=== PATIENT | female | born 1940 | race Caucasian/White ===

== ENCOUNTER 2016-10-01 19:07 | Observation (INO) | payer OTHER, MEDICARE ==
[~2016-10-01] VITALS: Ht 154.9 cm; Wt 61.2 kg
--- NOTE | 2016-10-01 19:15 | ED CARDIAC/CP/PALPITATIONS ---
History of Present Illness General Chief Complaint: Chest Pain Stated Complaint: CP, SYNCOPE Vital Signs & Intake/Output Vital Signs & Intake/Output Vital Signs Date Time Temp Pulse Resp B/P Pulse O2 O2 Flow FiO2 Ox Delivery Rate 10/01 1913 97.9 100 16 145/76 97 Room Air Allergies Coded Allergies: MDX - Amoxicillin (From AUGMENTIN) (Severe, RASH, HEADACHE, NAUSEA, VOMITING 06/15) MDX - Clavulanic Acid (From AUGMENTIN) (Severe, RASH, HEADACHE, NAUSEA, VOMITING 05/14/12) MDX - Hydrocodone (HYDROCODONE) (Severe, NAUSEA/VOMITING, HEADACHE, CHILLS 05/14) Uncoded Allergies: CILLAN DRUGS (Severe, RASH 05/14/12) VICODEN (Severe, FEVER, CHILLS, HEADACHE, DIZZY, N/V 05/14/12) Triage Note: PT STATES SHE HAS BEEN HAVING EPISODES OF PASSING OUT. PT STATES SHE JUST FINISHED DINNER AND WAS STANDING AT THE COUNTER AND THEN SHE FELL TO THE GROUND. PT STATES -LOC BUT SHE JUST CANT HOLD HERSELF UP. PT WENT TO SEE HER PCP AFTER THIS HAPPEND TO HER ON MONDAY AND SHE HAS F/UP WITH CARDIOLOGY. PT STATES THIS EPISODE LASTED ABOUT 10 MINUTES LAST EPISODE WAS 2 TO 3 MINUTES. Past History Travel History Traveled to [place] past 21 day No Psychosocial History What is your primary language Pashto Tobacco Use: Never used ETOH Use: denies use Illicit Drug Use: denies illicit drug use Progress Plan of Care: Orders Procedure Date/time Status EKG 10/01 1907 Active Departure Departure Condition: Stable Referrals: NELSON VIDAL,ROLF Camacho (PCP/Family) Departure Forms: Customer Survey General Discharge Information
--- NOTE | 2016-10-01 19:38 | NUR ---
SOA BY ER EKG PREFORMED IV MED LOCK EST B/W SENT GIVEN 325 MG ASA PO AT THIS TIME PATIENT DENIES PRESSURE OR PAIN DENIES SOB HR REGULAR NSR RATE 99
[2016-10-01 19:43] LABS: ABSOLUTE BASOPHIL COUNT 0.1 /CUMM (0.0-0.2); ABSOLUTE EOSINOPHIL COUNT 0.1 /CUMM (0.0-0.7); ABSOLUTE GRANULOCYTE CT 4.1 /CUMM (1.4-6.5); ABSOLUTE LYMPH COUNT 2.1 /CUMM (1.2-3.4); ABSOLUTE MONOCYTE COUNT 0.7 /CUMM (0.10-0.60); BASOPHIL % 0.9 % (0.0-2.0); EOSINOPHIL % 2.1 % (0-5); GRANULOCYTE % 58.1 % (42.2-75.2); HEMATOCRIT 38.6 % (37-47); MEAN CORPUSCULAR HGB 29.9 PG (27.0-31.0); MEAN CORPUSCULAR HGB CONC 34.5 G/DL (33.0-37.0); MEAN CORPUSCULAR VOLUME 86.8 FL (81.0-99.0); MEAN PLATELET VOLUME 8.1 FL (7.4-10.4); PLATELET COUNT 226 /CUMM (130-400); RBC DISTRIBUTION WIDTH 13.7 % (11.5-14.5); RED BLOOD CELL CT 4.45 /CUMM (4.20-5.40)
--- NOTE | 2016-10-01 19:54 | NUR ---
CONDITION UNCHANGED NO CP OR PRESSURE NO SOB MONITOR NSR W/ OCC PAC
--- NOTE | 2016-10-01 20:13 | ED GENERAL ADULT ---
See Addendum History of Present Illness General Chief Complaint: Chest Pain Stated Complaint: CP, SYNCOPE Source: patient Exam Limitations: no limitations Vital Signs & Intake/Output Vital Signs & Intake/Output Vital Signs Date Time Temp Pulse Resp B/P Pulse O2 O2 Flow FiO2 Ox Delivery Rate 10/01 2154 97.6 82 18 145/57 97 Room Air 10/01 2144 97 10/01 2052 84 18 132/64 97 Room Air 10/01 2016 93 18 145/70 97 Room Air 10/01 1953 92 18 134/67 97 Room Air 10/01 194 98 20 136/68 98 Room Air 10/01 1913 97.9 100 16 145/76 97 Room Air Allergies Coded Allergies: MDX - Amoxicillin (From AUGMENTIN) (Severe, RASH, HEADACHE, NAUSEA, VOMITING 06/15) MDX - Clavulanic Acid (From AUGMENTIN) (Severe, RASH, HEADACHE, NAUSEA, VOMITING 05/14/12) MDX - Hydrocodone (HYDROCODONE) (Severe, NAUSEA/VOMITING, HEADACHE, CHILLS 05/14) Uncoded Allergies: CILLAN DRUGS (Severe, RASH 05/14/12) VICODEN (Severe, FEVER, CHILLS, HEADACHE, DIZZY, N/V 05/14/12) Triage Note: PT STATES SHE HAS BEEN HAVING EPISODES OF PASSING OUT. PT STATES SHE JUST FINISHED DINNER AND WAS STANDING AT THE COUNTER AND THEN SHE FELL TO THE GROUND. PT STATES -LOC BUT SHE JUST CANT HOLD HERSELF UP. PT WENT TO SEE HER PCP AFTER THIS HAPPEND TO HER ON MONDAY AND SHE HAS F/UP WITH CARDIOLOGY. PT STATES THIS EPISODE LASTED ABOUT 10 MINUTES LAST EPISODE WAS 2 TO 3 MINUTES. Triage Nurses Notes Reviewed? yes Onset: Abrupt Duration: week(s): Timing: recent history HPI: 10/01/16 8 pm 75-year-old female presents to the emergency department for intermittent episodes of chest pressure and profound weakness. The patient states over the past three weeks she has intermittent episodes of chest pressure associated with weakness. She actually gets so weak she needs to lie down. She has not passed out. Today she had an extended period of chest pressure. This concerned her and she came to the emergency department. Currently in the emergency department she is not in pain. The onset of the symptoms were abrupt, the duration of the episode today began at 6:45 PM. Lasted for 10 minutes. She does admit to shortness of breath. (SHERRON OWEN DO) Past History Travel History Traveled to [place] past 21 day No Medical History Any Pertinent Medical History? see below for history Psychiatric: INSOMNIA Surgical History Surgical History: hysterectomy Psychosocial History What is your primary language Bermudian Tobacco Use: Never used ETOH Use: denies use Illicit Drug Use: denies illicit drug use Family History Hx Contributory? Yes (no CAD) (SHERRON OWEN DO) Review of Systems Review of Systems Constitutional: Denies: fever. EENTM: Denies: visual changes. Respiratory: Reports: short of breath. Cardiovascular: Reports: chest pain. GI: Denies: abdominal pain. Genitourinary: Reports: no symptoms. Musculoskeletal: Reports: no symptoms. Skin: Denies: rash. Neurological/Psychological: Reports: weakness. Hematologic/Endocrine: Denies: bruising, bleeding. (SHERRON OWEN DO) Physical Exam Physical Exam General Appearance: well developed/nourished, alert, awake, anxious, moderate distress Head: atraumatic, normal appearance Eyes: Bilateral: normal appearance, PERRL, EOMI. Ears, Nose, Throat: normal pharynx, normal ENT inspection Neck: normal inspection, supple Respiratory: normal breath sounds, chest non-tender, no respiratory distress Cardiovascular: regular rate/rhythm Peripheral Pulses: 4+ radial (R), 4+ radial (L) Gastrointestinal: soft, non-tender Back: normal range of motion Extremities: no edema Neurologic/Psych: no motor/sensory deficits, awake, alert, oriented x 3 Skin: intact, normal color, warm/dry Core Measures ACS in differential dx? Yes CVA/TIA Diagnosis: No Severe Sepsis Present: No Septic Shock Present: No (SHERRON OWEN DO) Progress Differential Diagnoses I considered the following diagnoses in my evaluation of the patient: [ACS, AORTIC DISSECTION, PE, DYSRHYTHMIA] Plan of Care: Orders Procedure Date/time Status Add-on Test (ER Only) 10/01 2138 Active EKG 10/01 2129 Active CTA CHEST-PULMONARY EMBOLISM 10/[address] in observation 10/01 2128 Active Patient Data 10/01 2118 Active Add-on Test (ER Only) 10/01 2012 Active THYROID STIMULATING HORMONE 10/01 1929 Active FREE T4 10/01 1929 Active D-DIMER 10/01 1929 Complete OXYGEN SETUP (GEN) 10/01 1925 Active Telemetry/Industrial Rehabilitation Consultant 10/01 1925 Active TROPONIN LEVEL 10/01 1925 Active COMPREHENSIVE METABOLIC PANEL 10/01 1925 Active CBC WITHOUT DIFFERENTIAL 10/01 1925 Complete EKG 10/01 1907 Active Laboratory Tests 10/01/161929: Anion Gap 15, Estimated GFR > 60, BUN/Creatinine Ratio 24.3, Glucose 113 H, Calcium 9.5, Total Bilirubin 0.5, AST 45 H, ALT 54 H, Alkaline Phosphatase 78, Troponin I < 0.01, Total Protein 6.7, Albumin 4.2, Globulin 2.5, Albumin/ Globulin Ratio 1.7, TSH Pending, Free T4 Pending, D-Dimer 756 H, CBC w Diff NO MAN DIFF REQ, RBC 4.45, MCV 86.8, MCH 29.9, RDW 13.7, MPV 8.1, Gran % 58.1, Lymphocytes % 29.4, Monocytes % 9.5 H, Eosinophils % 2.1, Basophils % 0.9, Absolute Granulocytes 4.1, Absolute Lymphocytes 2.1, Absolute Monocytes 0.7 H, Absolute Eosinophils 0.1, Absolute Basophils 0.1, PUBS MCHC 34.5 Initial ED EKG: NSR, nonspecific ST T wave chg (SHERRON OWEN DO) Diagnostic Imaging: Viewed by Me: CT Scan. Discussed w/RAD: CT Scan. Repeat EKG: unchanged (JUDITH PABLO MD) Departure Departure Disposition: STILL A PATIENT Condition: Stable Clinical Impression Primary Impression: Chest pain Secondary Impressions: Near syncope Referrals: ROLF DAMON MD (PCP/Family) Departure Forms: Customer Survey General Discharge Information Admission Note Spoke With: SHANICE VIDAL,ALANA Documentation of Exam: Documentation of any treatments & extenuating circumstances including Concerns Regarding Discharge (functional status, medication knowledge or non-compliance, living conditions, etc.) that warrant an admission rather than observation: [The patient needs admission for cardiology consultation, inpatient echocardiogram, CTA of the chest] (SHERRON OWEN DO) Departure Time of Disposition: 2128 (JUDITH PABLO MD) Critical Care Note Critical Care Note Critical Care Time: non-applicable (SHERRON OWEN DO)
--- NOTE | 2016-10-01 20:18 | NUR ---
CONDITION UNCHANGED MONITOR NSR NO PAIN OR PRESSURE
--- NOTE | 2016-10-01 20:40 | RADIOLOGY REPORT ---
EXAMINATION: XR PORTABLE CHEST CLINICAL INFORMATION: Shortness of breath. Evaluate for pneumonia. COMPARISON: No relevant prior studies are available for comparison. TECHNIQUE: Portable AP semiupright view of the chest was obtained. FINDINGS: No airspace consolidation. No pneumothorax or pleural effusion. No enlargement of the cardiomediastinal silhouette. Eventration of the right hemidiaphragm. Radiopaque structure overlying the upper abdomen which measures 2 cm and could represent an object external to the patient. A radiopaque gallstone could also be considered. IMPRESSION: No acute cardiopulmonary process.
--- NOTE | 2016-10-01 20:52 | NUR ---
CONDITION STABLE MONITOR NSR DENIES PAIN OR DISCOMFORT
--- NOTE | 2016-10-01 21:09 | NUR ---
RE-EVAL BY BALAJI VIDAL
--- NOTE | 2016-10-01 21:22 | History & Physical ---
TERRENCE VIDAL,[facility] 10/01/162121: General Information and [facility] MD Statement: I have seen and personally examined HAYLIE DUFF and documented this H&P. The patient is a 75 year old F who presented with a patient stated chief complaint of near syncope. Source of Information: patient, family History of Present Illness: Ms. Duff is a 75 y/o F with PMHx of insomnia who presents with multiple episodes of near syncope associated with chest discomfort for the past month. These episodes are preceded by a feeling of weakness and lightheadedness and she finds herself on the floor shortly afterwards. She does not lose consciousness completely during these episodes. Episodes are triggered by positional changes at times and recently they have been increasing in duration, lasting up to 10 minutes. She describes the chest discomfort as a feeling of pressure in her chest as well as on her back between her shoulder blades. Today's episode lasted for about 10 minutes and patient experienced chest pressure, sweating and diaphoresis. Patient also endorses intermittent episodes of tinnitus and right ear fullness for the past few years. Of note, patient has been under significant stress recently due to her son's recent hospitalization for adrenal crisis. She denies any similar episodes previously although she reports that 20 years ago she used to have episodes of dizziness and took a motion sickness medication which helped. She denies history of cardiac problems, HTN, DM, [place] or seizures. Patient was planning to follow up with a investor relations analyst in [place] next week based on the suggestions of her PCP. Past History Travel History Traveled to [place] past 21 day No Medical History Cardiovascular: NONE Psychiatric: insomnia Surgical History Surgical History: hysterectomy Past Family/Social History Family History Relations & Conditions if any FATHER, , Age 50-60; Cause: Lung cancer. FH: lung cancer MOTHER, , Age 60+; Cause: Fall. MATERNAL UNCLE FH: heart disease MATERNAL GRANDMOTHER FH: breast cancer MATERNAL GRANDFATHER FH: heart disease MATERNAL AUNT Rectal cancer PATERNAL GRANDFATHER, , Age 50-60; Cause: Walking pneumonia. PATERNAL GRANDMOTHER, , Age 50-60; Cause: Cirrhosis. FH: cirrhosis PATERNAL AUNT, , Age 50-60; Cause: Cirrhosis. FH: cirrhosis Relation not specified for: FH: colon cancer in relative <50 years old Psychosocial History Where do you live? Home Who Do You Live With? spouse Services at Home: None Primary Language: Luxembourgish Smoking Status: Never Smoked ETOH Use: denies use Illicit Drug Use: denies illicit drug use Functional Ability ADLs Independent: dressing, eating, toileting, bathing. Ambulation: independent IADLs Independent: shopping, housework, finances, food prep, telephone, transportation , medication admin. Employment History Employment Retired Profession/Employer Teacher Review of Systems Review of Systems Constitutional: Reports: diaphoresis, weakness. EENTM: Reports: see HPI. Cardiovascular: Reports: chest pain, palpitations. Respiratory: Reports: short of breath. GI: Denies: abdominal pain, constipation, diarrhea, nausea, vomiting. Genitourinary: Reports: no symptoms. Musculoskeletal: Reports: no symptoms. Skin: Reports: no symptoms. Neurological/Psychological: Reports: no symptoms. Hematologic/Endocrine: Reports: no symptoms. Immunologic/Allergic: Reports: no symptoms. All Other Systems: Reviewed and Negative Exam & Diagnostic Data Last 24 Hrs of Vital Signs/I&O Vital Signs Date Time Temp Pulse Resp B/P Pulse O2 O2 Flow FiO2 Ox Delivery Rate 10/01 2330 97.3 84 16 128/78 98 Room Air 10/01 2154 97.6 82 18 145/57 97 Room Air 10/015 97 10/01 2052 84 18 132/64 97 Room Air 10/01 2017 93 18 145/70 97 Room Air 10/01 195 92 18 134/67 97 Room Air 10/01 1941 98 20 136/68 98 Room Air 10/01 191 97.9 100 16 145/76 97 Room Air Intake & Output 10/02 0800 10/02 0000 10/01 1600 Intake Total 150 Output Total Balance 150 Intake, Oral 150 Patient 61.235 kg Weight Physical Exam General Appearance Alert, Oriented X3, No Acute Distress Skin No Rashes HEENT Atraumatic, PERRLA, EOMI, Mucous Membr. moist/pink, Oropharynx Clear Without Lesions, Mild Right Horizontal Nystagmus, Cerumen in Bilateral Ears Neck Supple, No JVD, +2 Carotid Pulse wo Bruit, No LAD Cardiovascular Regular Rate, Normal S1, Normal S2, No Murmurs, Gallops, Rubs Lungs Clear to Auscultation, Normal Air Movement Abdomen Soft, No Tenderness, Nondistended, Positive Bowel Sounds Neurological Normal Speech, Strength at 5/5 X4 Ext, Sensation Intact, Cranial Nerves 3-12 NL Extremities No Clubbing, No Cyanosis, No Edema Last 24 Hrs of Labs/Bryan: Laboratory Tests 10/01/16 1930: Anion Gap 15, Estimated GFR > 60, BUN/Creatinine Ratio 24.3, Glucose 113 H, Calcium 9.5, Magnesium 1.6, Total Bilirubin 0.5, AST 45 H, ALT 54 H, Alkaline Phosphatase 78, Troponin I < 0.01, Total Protein 6.7, Albumin 4.2, Globulin 2.5, Albumin/Globulin Ratio 1.7, TSH 2.030, Free T4 1.09, D-Dimer 756 H, CBC w Diff NO MAN DIFF REQ, RBC 4.45, MCV 86.8, MCH 29.9, RDW 13.7, MPV 8.1, Gran % 58.1, Lymphocytes % 29.4, Monocytes % 9.5 H, Eosinophils % 2.1, Basophils % 0.9, Absolute Granulocytes 4.1, Absolute Lymphocytes 2.1, Absolute Monocytes 0.7 H, Absolute Eosinophils 0.1, Absolute Basophils 0.1, PUBS MCHC 34.5 Diagnostic Data EKG Results NSR HR 98 QTc 450 CXR Results No acute cardiopulmonary process. Other Results CTA CHEST PE: 1. No central or segmental pulmonary emboli. 2. No airspace consolidation, pneumothorax, or pleural effusion. Left lower lobe postsurgical changes. 3. Multiple hepatic cysts. VTE: Negative. Assessment/Plan Assessment: 75 y/o F with PMHx of insomnia who present with multiple near syncopal episodes associated with chest discomfort x1 month. #Near syncope/chest discomfort: Most likely etiologies are neurocardigenic syncope in the setting of recent stressors and BPPV given right-sided horizontal nystagmus on exam and symptoms of tinnitus and ear fullness. Orthostatic hypotension is unlikely given negative orthostatics. Need to rule out cardiac causes such as ACS and arrhythmia. Initial set of troponins and EKG negative. * Admit to telemetry for continuous cardiac monitoring. * Cardiology consult placed. Appreciate their recs. * Check HbA1c and lipid panel. * Consider outpatient ENT follow given symptoms of tinnitus and ear fullness. * Serial EKG and troponins. * ECHO ordered. #Insomnia: * Continue prior to admission trazodone 100 mg PO QHS and sertraline 100 mg PO QHS. #Transaminitis: Mild elevation in AST (45) and ALT (54) on initial presentation. Likely secondary to hepatic cyst which has been diagnosed previously and present on current CTA. * NTD. Diet: Heart Healthy Pain: Tylenol 650 mg PO Q8H PRN for mild pain (scale 1-3) DVT PPx: Lovenox and ALPs CODE: FULL As Ranked By This Provider Problem List: 1. Near syncope 2. Chest pain 3. Insomnia 4. Transaminitis Core Measures/Miscellaneous Acute Coronary Syndrome ACS Diagnosis: No Cerebrovascular Accident CVA/TIA Diagnosis: No Congestive Heart Failure CHF Diagnosis: No Venous Thromboembolism VTE Risk Factors: Acute medical illness, Age > 40 VTE Prophylaxis Ordered Inpt: Mech & Pharm No Mech VTE prophylaxis d/t: No contraindications No VTE Pharm Prophylaxis d/t: No contraindications VTE Diagnosis: No VTE Type: NONE VTE Confirmed by (Test): NONE Severe Sepsis Severe Sepsis Present: No Septic Shock Septic Shock Present: No Miscellaneous Documentation Attending Case Discussed With: ALANA PRASAD MD Primary Care Physician: ROLF DAMON MD Patient sees these Specialists N/A Level of Patient Care: Telemetry YIMI PRASAD MD 10/01/16 2236: Attending MD Review Statement Attending Statement Attending MD Statement: examined this patient, discuss w/resident/PA/MEDICAL STAFF ASSISTANT, agreed w/resident/PA/MEDICAL STAFF ASSISTANT, discussed with family Attending Assessment/Plan: 75 yo F with h/o insomnia, is here for evaluation of recurrent episodes of near syncope (lightheadedness, nausea, weakness, palpitations, chest pressure, dyspnea) with increasing duration from 1 min to almost 10 minutes over past 1 month. No seizure like activity, vision changes, headache of LOC. She has ringing in her ears with fullness in her right ear, but denies pain or discharge. She had a similar episode while in the ER, at times lightheadedness is positional. Reports recent stress son who has acromegaly and suffered adrenal crisis requiring extensive hospitalization. Denies previous cardiac history, no new meds. She was to see a investor relations analyst at [place] next week as suggested by her PCP. VSS. Orthostats negative. Exam suggestive of right sided horizontal nystagmus. Otoscopic exam cerumen+. Neuro nonfocal. Unremarkable heart and lung exam. Labs: D-dimer elevated, glucose 113, AST 45, ALT 54, trop neg, TSH/ free T4 normal. EKG: SR. CXR neg. CTA: no PE, multiple hepatic cyst+. 1. Near syncope, chest pressure. 23 Obs on Tele, monitor for arrhythmias, rule out ACS, Echo in AM, Cardio consult. Stress induced vasovagal event is a possibility vs. BPPV. Once cardiac causes have been ruled out, would consider outpatient ENT follow up. Check lipid panel, HbA1c. 2. Insomnia. Ct. trazodone and sertraline. 3. Mild transaminitis in the setting of hepatic cyst (known history). DVT ppx Lovenox. Full code. ADBI VIDAL,FORTUNATO 10/01/16 2120: General Information and HPI Allergies/Medications Allergies: Coded Allergies: Penicillins (Intermediate, RASH, NAUSEA/VOMITING 10/01/16) amoxicillin (From Augmentin) (Intermediate, RASH, NAUSEA/VOMITING 10/01/16) clavulanic acid (From Augmentin) (Intermediate, RASH, NAUSEA/VOMITING 10/01/16) hydrocodone (Intermediate, RASH 10/01/16) Home Med list Sertraline HCl 100 MG TABLET 1 TAB PO DAILY MENTAL HEALTH (Reported) Trazodone HCl 100 MG TABLET 1 TAB PO QPM MENTAL HEALTH (Reported) Resident Review Statement Resident Statement: examined this patient, discussed with management retail intern, agreed with management retail intern Other Findings: 75 YO healthy F arrives from home c/o chest pressure that occured today lasting about 10 minutes. Reports 3 previous episodes over the past several weeks. Reports palpitations that occur with pressure with a feeling of lightheadedness and weakness. Denies chest pain, shortness of breath with episodes. Denies history of cardiac symptoms in the past. Provides a history of recent stress from sons hospitalization, with a good outcome, and now with bills associated with that hosptialization. She also c/o ringing in her ears which has been ongoing, the feeling that she may pass out at times. Denies headaches, visual changes, fevers, chills, sick contacts, nausea, vomiting, diarrhea, urinary symptoms, or weight loss. T 97.6, P 82, RR 18, BP 145/57, 97 RA Alert Oriented X 4 Well nourished, in no acute distress NCAT,EDIN, EOMI, nystagmus right side, TM not visualized due to cerumen accumulation CVS S1, S2 no m/r/g RS CTA b/l good airmovement Abdo soft nontender, not distended, bowel sounds+ Neuro no focal neurological deficits noted D-dimer 756, AST/ALT 45/54 CTA no central/segmental pulmonary emboli, no airspace consolidation, pneumothorax, pleural effusion, multiple hepatic cysts Troponin 0.01 TSH 2.030, T4 1.09 EKG NSR 98, QTc 450 CXR no acute cardiopulmonary process 75 YO female presents with recurrent chest pressure that has occured on multiple occasions over the past few weeks, today lasting >10 minutes. She is a generally healthy female without medical conditions. Provides a history of recent stressors which is causing undue tension on her. Her chest pressure needs further investigation we will observe on telemetry overnight and get serial troponins and ekgs, get echocardiogram, cardiology consultation, she has already recieved aspirin. We will check HbA1c, and lipid panel. Her ongoing tinnitis and dizziness could be a component of BPPV, we will continue to monitor at this time. Heart healthy diet. DVT ppx lovenox sc, Mild PPathway
--- NOTE | 2016-10-01 21:32 | NUR ---
PATIENT WAS ALLOWED TO USE BR WHILE AMBULATING BACK TO ROOM C/O SUDDEN ONSET OF WEAKNESS UNABLE TO MAINTAIN BALANCE RETURNED TO BED MONITOR NSR W/ FREQ PAC'S RATE 112 W/IN MINUTE LYING ON BED HR RETURNED TO 97 NSR PATIENT REPORTS DURING EPISODE FELT "RACING OF HEART " BUT DENIES ANY CHEST PRESSURE OR SOB OSVS DONE REPEAT EKG REPORTED TO ER
--- NOTE | 2016-10-01 21:45 | NUR ---
TO CT SCAN
--- NOTE | 2016-10-01 22:04 | NUR ---
RETURNED FROM CT SEEN BY HOUSE STAFF
--- NOTE | 2016-10-01 22:35 | CT SCAN REPORT ---
EXAMINATION: CT ANGIOGRAM OF THE CHEST WITH AND WITHOUT CONTRAST (CT PULMONARY ANGIOGRAM FOR PE) CLINICAL INFORMATION: Chest pain, elevated D-dimer. Evaluate for a pulmonary embolism. COMPARISON: Multiple priors, most recent chest radiograph done earlier the same day. TECHNIQUE: Prior to contrast administration, noncontrast localization images were obtained. Subsequently, multidetector volumetric imaging was performed from the thoracic inlet to below the diaphragms following the administration of 83 mL Optiray 350 intravenous contrast. No contrast reaction reported. Sagittal, coronal, and MIP oblique sagittal reformatted images were obtained on the CT workstation, uploaded to PACS, and reviewed. Total exam dose-length product 350.49 mGy-cm. FINDINGS: QUALITY OF STUDY/CONTRAST BOLUS: Satisfactory. PULMONARY ARTERIES: No central or segmental pulmonary emboli. THORACIC AORTA: No aneurysm or dissection. LUNG: No focal consolidation, nodules or masses. Surgical sutures are noted within the right lower lobe. PLEURA: No pleural effusion or pneumothorax. MEDIASTINUM: Normal heart size. No pericardial effusion. No hilar or mediastinal lymphadenopathy. No evidence of septal bowing or right heart strain. CHEST WALL/AXILLA: No axillary or internal mammary lymphadenopathy. OSSEOUS STRUCTURES: There is mild dextroscoliosis of the thoracic spine. There is no lytic or blastic osseous lesion. UPPER ABDOMEN: There are multiple hepatic cysts. Otherwise, the visualized upper abdominal structures are unremarkable. No reflux of contrast into the hepatic veins to suggest elevated right heart pressures. IMPRESSION: 1. No central or segmental pulmonary emboli. 2. No airspace consolidation, pneumothorax, or pleural effusion. Left lower lobe postsurgical changes. 3. Multiple hepatic cysts. VTE: Negative.
[2016-10-01] MEDS ORDERED: TRAZODONE HCL100 M1 PO (23:04)
[2016-10-01] MEDS ORDERED: SERTRALINE HCL100 MG PO (23:04)
--- NOTE | 2016-10-01 23:05 | NUR ---
Emergency Dept UC Admit Note: To be admitted to [facility] by DR PRASAD with CHEST PAIN as the diagnosis, to TELE/OBS, ROOM 175-01 location. Nursing Housing Development Specialist and admitting notified 10/01/16 at 2250
--- NOTE | 2016-10-01 23:21 | NUR ---
ATTEMPTED TO GIVE REPORT, SAID THEY WOULD CALL BACK
[2016-10-01 23:30] VITALS: BP 128/78
--- NOTE | 2016-10-01 23:30 | NUR ---
REPORT GIVEN TO CORINNA SELBY
[2016-10-02 07:53] VITALS: BP 108/68
--- NOTE | 2016-10-02 11:52 | PN- Att Addend ---
Attending Addendum Attending Brief Note Right pleasant lady, resting comfortably in bed not in any acute distress. Denies any dizziness at rest. When she did [place] for examination however she reported feeling dizzy. Denied nausea vomiting. She reports fullness in her right ear and bilateral statics sounds. She however reports that this is chronic for her. She denies any loss of consciousness. Denies any chest pain presently. Vital Signs Date Time Temp Pulse Resp B/P Pulse O2 O2 Flow FiO2 Ox Delivery Rate 10/02 0753 97.7 68 18 108/68 98 Room Air 10/01 2330 97.3 84 16 128/78 98 Room Air 10/01 2155 97.6 82 18 145/57 97 Room Air 10/01 2145 97 10/01 2052 84 18 132/64 97 Room Air 10/01 2016 93 18 145/70 97 Room Air 10/01 1954 92 18 134/67 97 Room Air 10/01 1941 98 20 136/68 98 Room Air 10/01 1914 97.9 100 16 145/76 97 Room Air Intake & Output 10/02 1600 10/02 0800 10/02 0000 Intake Total 100 150 Output Total Balance 100 150 Intake, IV 0 Intake, Oral 100 150 Number 0 Bowel Movements Patient 61.235 kg Weight Gen. appearance: Well-developed, not in acute distress Heart: S1-S2 regular with no audible murmur Lungs: Good entry bilaterally, clear to auscultation Abdomen: Soft, nontender with normal bowel sounds Extremities: No pedal edema Skin: Intact with no rashes Neurologic: No gross focal deficit. No nystagmus. Laboratory Tests 10/02/16 0820: Hemoglobin A1c Pending 10/02/16 0820: Troponin I 0.04, Triglycerides 105, Cholesterol 196, LDL Cholesterol, Calc 121, HDL Cholesterol 54, Cholesterol/HDL Ratio 4 10/02/16 0130: Troponin I 0.07 10/01/16 1930: Anion Gap 15, Estimated GFR > 60, BUN/Creatinine Ratio 24.3, Glucose 113 H, Calcium 9.5, Magnesium 1.6, Total Bilirubin 0.5, AST 45 H, ALT 54 H, Alkaline Phosphatase 78, Troponin I < 0.01, Total Protein 6.7, Albumin 4.2, Globulin 2.5, Albumin/Globulin Ratio 1.7, TSH 2.030, Free T4 1.09, D-Dimer 756 H, CBC w Diff NO MAN DIFF REQ, RBC 4.45, MCV 86.8, MCH 29.9, RDW 13.7, MPV 8.1, Gran % 58.1, Lymphocytes % 29.4, Monocytes % 9.5 H, Eosinophils % 2.1, Basophils % 0.9, Absolute Granulocytes 4.1, Absolute Lymphocytes 2.1, Absolute Monocytes 0.7 H, Absolute Eosinophils 0.1, Absolute Basophils 0.1, PUBS MCHC 34.5 Problems: 1. Recurrent lightheadedness 2. Chest pain 3. Anxiety disorder Plan: -Continue telemetry monitoring to rule out arrhythmias as cause of her symptoms. -Obtain echocardiogram and carotid Dopplers. -If cardiac workup is negative, recommend outpatient follow-up with ENT service particularly given past history of static sounds and fullness in the right ear. She reports less intense history several years ago that was relieved following ENT evaluation. -Recommend physical therapy evaluation for Cassy maneuver. -If her symptoms recall begin trial of meclizine. -Continue her angiolytic regimen.
--- NOTE | 2016-10-02 13:59 | ULTRASOUND REPORT ---
EXAMINATION: DUPLEX BILATERAL CAROTID ULTRASOUND CLINICAL INFORMATION: Syncope, chest pain, vertigo COMPARISON: None. TECHNIQUE: Duplex bilateral carotid US was performed using real-time ultrasound and Doppler techniques (integrating B-mode 2D vascular images, Doppler spectral analysis and color flow Doppler imaging). These techniques were utilized to interrogate the extracranial carotid and vertebral arteries bilaterally. The degree of stenosis is based off criteria similar to NASCET. FINDINGS: 1. On the right: Plaque is present at the carotid bifurcation but velocity measurements are normal and do not suggest a stenosis of greater than 50% diameter reduction in the right ICA. The right external carotid artery shows no significant stenosis. The vertebral artery is patent demonstrating antegrade flow. 2. On the left: Plaque is present at the carotid bifurcation but velocity measurements are normal and do not suggest a stenosis of greater than 50% diameter reduction in the left ICA. The left external carotid artery shows no significant stenosis. The vertebral artery is patent demonstrating antegrade flow. IMPRESSION: Plaque is present in the internal carotid arteries but velocity measurements are normal and there is no evidence to suggest a hemodynamically significant stenosis of greater than 50% diameter reduction.
--- NOTE | 2016-10-02 15:35 | Cons- Cardiology ---
General Information and HPI Consulting Request Date of Consult: 10/02/16 Requested By: SHANICE VIDAL,TRIXIEALAKSHMI Reason for Consult: Chest pain, presyncope Source of Information: patient History of Present Illness: This is a 75-year-old female with no known cardiac history who presents to [facility] with a chief complaint of intermittent dizziness and presyncope. She has had multiple episodes over the last few weeks. No clear exacerbating or alleviating factors and the duration of the episodes is usually less than 10 minutes. She does experience intermittent low-level chest discomfort without dyspnea associated with the episodes. She denies ever actually losing consciousness but has slid to the floor out of her chair on a few occasions. One of the episodes was precipitated by turning her head but other episodes were not. She does note a feeling of fullness in her ear without associated the pain or fever. She finds the episodes distressing and causing a lot of anxiety. She denies visual changes, slurring of speech, focal weakness, nausea, vomiting, diarrhea, or bleeding. He denies any exertional symptoms. She does note feeling "hot/flushed" at times. Allergies/Medications Allergies: Coded Allergies: Penicillins (Intermediate, RASH, NAUSEA/VOMITING 10/01/16) amoxicillin (From Augmentin) (Intermediate, RASH, NAUSEA/VOMITING 10/01/16) clavulanic acid (From Augmentin) (Intermediate, RASH, NAUSEA/VOMITING 10/01/16) hydrocodone (Intermediate, RASH 10/01/16) Home Med List: Sertraline HCl 100 MG TABLET 1 TAB PO DAILY MENTAL HEALTH (Reported) Trazodone HCl 100 MG TABLET 1 TAB PO QPM MENTAL HEALTH (Reported) Current Medications: Current Medications Sig/Migue Start time Last Medication Dose Route Stop Time Status Admin Acetaminophen 650 MG Q8P PRN 10/01 2314 AC PO Aspirin 0 .STK-MED ONE 10/01 1936 DC PO Aspirin 325 MG ONCE ONE 10/01 1929 DC 10/01 PO 10/01 Enoxaparin Sodium 40 MG DAILY 10/02 1000 AC 10/02 SC 0902 Sertraline HCl 100 MG AT BEDTIME 10/02 2200 AC PO Sertraline HCl 100 MG DAILY 10/01 2315 DC 10/02 PO 0008 Trazodone HCl 100 MG QPM 10/01 2315 AC 10/02 PO 0008 Review of Systems Review of Systems: Review of systems as per HPI. The remainder of a 10 point review of systems was reviewed and was otherwise negative. Past History Travel History Traveled to [place] past 21 day No Medical History Blood Transfusion Hx: Yes Neurological: NONE EENT: NONE Cardiovascular: NONE Respiratory: NONE Gastrointestinal: NONE Hepatic: NONE Renal: NONE Musculoskeletal: NONE Psychiatric: insomnia Endocrine: NONE Blood Disorders: NONE Cancer(s): NONE TRANSACTIONAL PARALEGAL/Reproductive: NONE Surgical History Surgical History: hysterectomy Psychosocial History Who Do You Live With? spouse Services at Home: None Primary Language: Slovenian Smoking Status: Never Smoked ETOH Use: denies use Illicit Drug Use: denies illicit drug use Functional Ability ADLs Independent: dressing, eating, toileting, bathing. Ambulation: independent IADLs Independent: shopping, housework, finances, food prep, telephone, transportation , medication admin. Employment History Employment: Retired Profession/Employer Teacher Exam & Diagnostic Data Vital Signs and I&O Vital Signs Date Time Temp Pulse Resp B/P Pulse O2 O2 Flow FiO2 Ox Delivery Rate 10/02 0753 97.7 68 18 108/68 98 Room Air 10/01 2330 97.3 84 16 128/78 98 Room Air 10/01 2154 97.6 82 18 145/57 97 Room Air 10/01 2144 97 10/01 2052 84 18 132/64 97 Room Air 10/01 2016 93 18 145/70 97 Room Air 10/01 1953 92 18 134/67 97 Room Air 10/01 194 98 20 136/68 98 Room Air 10/01 1914 97.9 100 16 145/76 97 Room Air Intake & Output 10/02 1600 10/02 0800 10/02 0000 10/01 1600 10/01 0800 10/01 0000 Intake Total 560 100 150 Output Total Balance 560 100 150 Intake, IV 0 Intake, Oral 560 100 150 Number 0 Bowel Movements Patient 135 lb Weight Physical Exam: General: no apparent distress. Alert. Eyes: No obvious scleral icterus. HEENT: No jugular venous distention or abnormal jugular venous pulsations. Cardiovascular: Normal intensity S1/S2. PMI not grossly displaced. Respiratory: Lungs clear to auscultation bilaterally. Abdomen: Soft, nontender with no guarding or rebound tenderness. Musculoskeletal: No clubbing or cyanosis noted Skin: No obvious rashes or ulcerations. Neurologic: No gross focal deficits noted. Lymph: No gross lymphadenopathy. Labs/Bryan Results: Laboratory Tests 10/02 10/02 10/02 10/01 0820 0820 0130 1930 Chemistry Sodium (137 - 145 mmol/L) 140 Potassium (3.5 - 5.1 mmol/L) 4.0 Chloride (98 - 107 mmol/L) 103 Carbon Dioxide (22 - 30 mmol/L) 22 Anion Gap (5 - 16) 15 BUN (7 - 17 mg/dL) 17 Creatinine (0.5 - 1.0 mg/dL) 0.7 Estimated GFR (>60 ml/min) > 60 BUN/Creatinine Ratio (7 - 25 %) 24.3 Glucose (65 - 99 mg/dL) 113 H Hemoglobin A1c Pending Calcium (8.4 - 10.2 mg/dL) 9.5 Magnesium (1.6 - 2.3 mg/dL) 1.6 Total Bilirubin (0.2 - 1.3 mg/dL) 0.5 AST (14 - 36 U/L) 45 H ALT (9 - 52 U/L) 54 H Alkaline Phosphatase (<127 U/L) 78 Troponin I (< 0.11 ng/ml) 0.04 0.07 < 0.01 Total Protein (6.3 - 8.2 g/dL) 6.7 Albumin (3.5 - 5.0 g/dL) 4.2 Globulin (1.9 - 4.2 gm/dL) 2.5 Albumin/Globulin Ratio (1.1 - 2.2 %) 1.7 Triglycerides (<150 mg/dL) 105 Cholesterol (<200 MG/DL) 196 LDL Cholesterol, Calc (65 - 129 mg/dL) 121 HDL Cholesterol (40 - 60 mg/dL) 54 Cholesterol/HDL Ratio (0.00 - 4.23 %) 4 TSH (0.270 - 4.200 uIU/mL) 2.030 Free T4 (0.78 - 2.44 ng/dL) 1.09 Coagulation D-Dimer (70 - 232 ng/ml) 756 H Hematology CBC w Diff NO MAN DIFF REQ WBC (4.8 - 10.8 /CUMM) 7.0 RBC (4.20 - 5.40 /CUMM) 4.45 Hgb (12.0 - 16.0 G/DL) 13.3 Hct (37 - 47 %) 38.6 MCV (81.0 - 99.0 FL) 86.8 MCH (27.0 - 31.0 PG) 29.9 RDW (11.5 - 14.5 %) 13.7 Plt Count (130 - 400 /CUMM) 226 MPV (7.4 - 10.4 FL) 8.1 Gran % (42.2 - 75.2 %) 58.1 Lymphocytes % (20.5 - 51.1 %) 29.4 Monocytes % (1.7 - 9.3 %) 9.5 H Eosinophils % (0 - 5 %) 2.1 Basophils % (0.0 - 2.0 %) 0.9 Absolute Granulocytes (1.4 - 6.5 /CUMM) 4.1 Absolute Lymphocytes (1.2 - 3.4 /CUMM) 2.1 Absolute Monocytes (0.10 - 0.60 /CUMM) 0.7 H Absolute Eosinophils (0.0 - 0.7 /CUMM) 0.1 Absolute Basophils (0.0 - 0.2 /CUMM) 0.1 PUBS MCHC (33.0 - 37.0 G/DL) 34.5 Diagnostic Data EKG Results Tracing was personally reviewed and shows sinus rhythm at 72 bpm. CXR Results No CHF Other Results Chest CT 1. No central or segmental pulmonary emboli. 2. No airspace consolidation, pneumothorax, or pleural effusion. Left lower lobe postsurgical changes. 3. Multiple hepatic cysts. Telemetry tracings were personally reviewed and shows sinus rhythm without sustained arrhythmia or pauses Carotid Doppler without obvious obstruction Assessment/Plan Assessment/Plan 1. Intermittent nonexertional chest discomfort 2. Intermittent dizziness/weakness/presyncope 3. Anxiety The patient's symptoms are of unclear etiology but could certainly be related to vertigo. Of concern is the intermittent chest discomfort although her troponins are negative and ECG is unremarkable. No evidence of carotid obstruction. No evidence of arrhythmia thus far. Vasovagal or orthostatic episodes are in the differential. She has not been orthostatic here in the hospital. Discussed considering additional cardiac testing as outpatient but she is quite nervous about delaying testing given her recurrent episodes. We will therefore plan for inpatient echocardiogram and exercise stress test tomorrow. She may be a candidate for further monitoring after discharge with a 30 day event monitor. Agree that she will likely need outpatient ENT evaluation and may benefit from a trial of meclizine. Damian Hedrick MD FAC Consult Acknowledgment - Thank you for your consult request.
[2016-10-02 16:00] VITALS: BP 106/68
--- NOTE | 2016-10-02 18:20 | NUR ---
NURSING NOTE; AT 1755 CALLED INTO PATIENT'S ROOM. PT C/O FEELING VERY TIRED AND VERY WEAK. SO MUCH SO THAT SHE HAD TO LIE DOWN. DENIES ANY CHEST PRESSURE. BP 128/64. REMAINS NSR 80'S. NO ECTOPY. MADE AWARE. WILL CONTINUE TO MONITOR FOR IMPROVEMENT.
[2016-10-03 00:04] VITALS: BP 108/66
--- NOTE | 2016-10-03 07:39 | PN- Housestaff ---
ANIL VIDAL,ELIZA 10/03/16 0739: Subjective Follow-up For: Presyncope, dizziness Tele-Events Since Last Visit: Heart rate between 60s to 70s no overnight events noted on telemetry. Subjective: Patient is feeling fine today. No overnight event reported. Denies chest pain, syncope, dizziness. Has some fullness in the head. Denies vertigo. Currently nothing by mouth for a stress test this morning. Review of Systems Constitutional: Reports: see HPI. Objective Last 24 Hrs of Vital Signs/I&O Vital Signs Date Time Temp Pulse Resp B/P Pulse O2 O2 Flow FiO2 Ox Delivery Rate 10/03 0900 98.0 70 20 110/70 98 Room Air 10/03 0004 97.8 75 20 108/66 96 10/02 1600 97.8 79 20 106/68 96 Room Air Intake & Output 10/03 1600 10/03 0800 10/03 0000 Intake Total 0 640 Output Total Balance 0 640 Intake, Oral 0 640 Physical Exam General Appearance: Alert, Oriented X3, Cooperative, No Acute Distress HEENT: dry mucous membrane Cardiovascular: Regular Rate, Normal S1, Normal S2, No Murmurs Lungs: Clear to Auscultation Abdomen: Normal Bowel Sounds, Soft, No Tenderness Neurological: Normal Speech Extremities: No Clubbing, No Cyanosis, No Edema Current Medications: Current Medications Sig/Migue Start time Last Medication Dose Route Stop Time Status Admin Acetaminophen 650 MG Q8P PRN 10/01 2315 AC PO Enoxaparin Sodium 40 MG DAILY 10/02 1000 AC 10/03 SC 0833 Sertraline HCl 100 MG AT BEDTIME 10/02 2200 AC 10/02 PO 2200 Trazodone HCl 100 MG QPM 10/01 2315 AC 10/02 PO 2200 Assessment/Plan Assessment: Ms. Mar is a 75 y/o F with PMHx of insomnia who presents with multiple episodes of near syncope associated with chest discomfort for the past month. 1. Intermittent dizziness/weakness/presyncope : As per discussion with cardiology who recommended considering additional outpatient cardiac testing, patient was concerned about waiting for testing given her recurrent episodes plan was made to obtain a exercise stress test and echocardiogram in the hospital. She is currently nothing by mouth 2. Intermittent chest pain: ACS ruled out. 3. Anxiety we will continue on Zoloft and trazodone. Patient stress test comes back normal today she can be discharged and recommended to follow-up with her primary care physician. SHe will need a follow up with cardiology for Holter/event monitor for recurrent syncope. We will refer her to follow up with Dr. Moore for vertigo and dizziness. We will send her home on meclizine tid for symptomatic relief Problem List: 1. Near syncope 2. Chest pain Pain Ratin Pain Location: Chest Pain Goal: Remain pain free Pain Plan: Tylenol Tomorrow's Labs & Rationales: To be discharged today NATHANIEL HUBBARD MD 10/03/16 1400: Attending MD Review Statement Attending Statement Attending MD Statement: examined this patient, discuss w/resident/PA/CAR MOVER, agreed w/resident/PA/CAR MOVER, reviewed EMR data (avail), discussed with nursing, discussed with case mgmt Attending Assessment/Plan: Pt is doing well. No complaints. She hasn't had anymore episodes. Her stress test was normal and echo was normal. I went over her with length that the workup is not complete but we've done some of the cardiac part of the workup and the carotid Dopplers are negative. She needs to see ENT as an outpatient and have follow-up with cardiology with a likely 30 day event monitor as an outpatient. She is comfortable with the plan.
[2016-10-03 09:00] VITALS: BP 110/70
--- NOTE | 2016-10-03 11:34 | PN- Cardiology ---
Subjective Subjective: The patient is awake, alert The events of the last 24 hours as well as telemetry were reviewed. Review of Systems: The review of systems is negative for chest pains, palpitations nor lightheadedness. The remainder of the 14 point review of systems is noncontributory with the exception of above. Objective Vital Signs and I&Os Vital Signs Date Time Temp Pulse Resp B/P Pulse O2 O2 Flow FiO2 Ox Delivery Rate 10/03 0900 98.0 70 20 110/70 98 Room Air 10/03 0004 97.8 75 20 108/66 96 10/02 1600 97.8 79 20 106/68 96 Room Air Intake & Output 10/03 1600 10/03 0800 10/03 0000 10/02 1600 10/02 0800 10/02 0000 Intake Total 0 640 560 100 150 Output Total Balance 0 640 560 100 150 Intake, IV 0 Intake, Oral 0 640 560 100 150 Number 0 Bowel Movements Patient 135 lb Weight Physical Exam: General: Nontoxic, no apparent distress. HEENT: Sclera and conjunctiva within normal limits, without xanthelasmas. Neck: Carotids 2+ without bruits. Respiratory: Clear to auscultation, air movement is good, without accessory respiratory muscle use. Heart: Regular rate and rhythm, without murmurs, without JVD. Abdomen: Soft, nontender, no masses, normoactive bowel sounds. Extremities: Without clubbing, cyanosis, without edema. Neuro: Nonfocal exam, strength, 5 out of 5 Skin: Within normal limits without lesions. Psych: Mood and affect: Normal Current Medications: Current Medications Sig/Migue Start time Last Medication Dose Route Stop Time Status Admin Acetaminophen 650 MG Q8P PRN 10/01 2314 AC PO Enoxaparin Sodium 40 MG DAILY 10/02 1000 AC 10/03 SC 0833 Sertraline HCl 100 MG AT BEDTIME 10/02 2199 AC 10/02 PO 2200 Trazodone HCl 100 MG QPM 10/01 2314 AC 10/02 PO 2200 Results Last 48 Hrs of Labs/Mics: Laboratory Tests 10/02/16 0820: Hemoglobin A1c Pending 10/02/16 0820: Troponin I 0.04, Triglycerides 105, Cholesterol 196, LDL Cholesterol, Calc 121, HDL Cholesterol 54, Cholesterol/HDL Ratio 4 10/02/16 0130: Troponin I 0.07 01/28/17 1930: Anion Gap 15, Estimated GFR > 60, BUN/Creatinine Ratio 24.3, Glucose 113 H, Calcium 9.5, Magnesium 1.6, Total Bilirubin 0.5, AST 45 H, ALT 54 H, Alkaline Phosphatase 78, Troponin I < 0.01, Total Protein 6.7, Albumin 4.2, Globulin 2.5, Albumin/Globulin Ratio 1.7, TSH 2.030, Free T4 1.09, D-Dimer 756 H, CBC w Diff NO MAN DIFF REQ, RBC 4.45, MCV 86.8, MCH 29.9, RDW 13.7, MPV 8.1, Gran % 58.1, Lymphocytes % 29.4, Monocytes % 9.5 H, Eosinophils % 2.1, Basophils % 0.9, Absolute Granulocytes 4.1, Absolute Lymphocytes 2.1, Absolute Monocytes 0.7 H, Absolute Eosinophils 0.1, Absolute Basophils 0.1, PUBS MCHC 34.5 Assessment/Plan Assessment/Plan 75-year-old female with no known cardiac history who presents to [facility] with a chief complaint of intermittent dizziness and presyncope, as well as atypical chest pain. Atypical chest pain: The patient has ruled out for myocardial infarction via serial troponin isoenzymes. An echocardiogram as well as stress testing is scheduled for today. If testing proves negative, she may be discharged to home with further outpatient follow-up including a 30 day cardiac event monitor. Stress test: The patient completed 7 minutes of a standard Dario protocol ETT, stopping secondary to fatigue. No arrhythmias were noted during testing. No pain was noted during exercise. No ischemic EKG changes were noted during exercise. Normal stress test at high average exercise capacity. Continue telemetry? No
--- NOTE | 2016-10-03 13:05 | ECHOCARDIOGRAM REPORT ---
HAYLIE DUFF Age: 75 : 1940 Gender: F Exam Date: 10/03/2016 11:51 Exam Location: 1 [address] Ht (in): 61 Wt (lb): 135 BSA: 1.64 BP: 110 / 70 Ordering Physician: FORTUNATO PATTON MD Referring Physician: FORTUNATO PATTON MD Technologist: Kris Corona [facility] Room Number: [id number] Indications: Chest Pain Rhythm: Technical Quality: FINDINGS Left Ventricle Normal LV chamber size wall thickness and systolic function. The estimated LVEF is >55% without focal wall motion abnormalities. Right Ventricle Normal appearing right ventricular structure and function. Right Atrium Normal appearing right atrial size Left Atrium Normal appearing left atrial size Mitral Valve Minimally thickened and calcified mitral valve leaflets with normal leaflet opening. There is mild mitral regurgitation Aortic Valve Mildly sclerotic aortic valve leaflets with normal leaflet opening. Tricuspid Valve Normal appearing tricuspid valve leaflets structure and function. There is mild tricuspid regurgitation Pulmonic Valve Grossly normal appearing pulmonic valvular leaflet structure and function Pericardium Normal-appearing pericardium. There is no pericardial effusion Great Vessels Grossly normal appearing great vessels CONCLUSIONS Normal LV chamber size wall thickness and systolic function. The estimated LVEF is >55% without focal wall motion abnormalities. There is mild mitral regurgitation. There is mild tricuspid regurgitation. Giuseppe Robledo M.D. (Electronically Signed) Final Date: 03 October 2016 13:05 MEASUREMENTS (Male / Female) Normal Values 2D ECHO LV Diastolic Diameter PLAX 4.2 cm 4.2 - 5.9 / 3.9 - 5.3 cm LV Systolic Diameter PLAX 2.4 cm 2.1 - 4.0 cm LV Fractional Shortening PLAX 42.9 % 25 - 46 % LV Ejection Fraction 2D Teich 74.3 % IVS Diastolic Thickness 0.8 cm LVPW Diastolic Thickness 0.8 cm LV Relative Wall Thickness 0.4 RV Internal Dim ED PLAX 3.0 cm 1.9 - 3.8 cm LVOT Diameter 1.8 cm Aortic Root Diameter 3.0 cm LA Systolic Diameter LX 3.0 cm 3.0 - 4.0 / 2.7 - 3.8 cm Ascending Aorta Diameter 3.0 cm DOPPLER AV Peak Velocity 118.0 cm/s AV Peak Gradient 5.6 mmHg AV Mean Velocity 82.7 cm/s AV Mean Gradient 3.0 mmHg AV Velocity Time Integral 27.6 cm LVOT Peak Velocity 108.0 cm/s LVOT Peak Gradient 4.7 mmHg LVOT Mean Velocity 72.4 cm/s LVOT Mean Gradient 2.0 mmHg LVOT Velocity Time Integral 23.4 cm LVOT Stroke Volume 59.5 cm AV Area Cont Eq vti 2.2 cm AV Area Cont Eq pk 2.3 cm MV Peak Velocity 80.4 cm/s MV Peak Gradient 2.6 mmHg MV Mean Velocity 54.0 cm/s MV Mean Gradient 1.0 mmHg Mitral E Point Velocity 57.3 cm/s Mitral A Point Velocity 60.7 cm/s Mitral E to A Ratio 0.9 MV PHT Velocity 78.4 cm/s MV Deceleration Calloway 332.0 cm/s MV Pressure Half Time 70.8 ms MV Area PHT 3.1 cm MV Deceleration Time 320.0 ms MR Peak Velocity 494.0 cm/s MR Peak Gradient 97.6 mmHg PV Peak Velocity 60.7 cm/s PV Peak Gradient 1.5 mmHg PV Mean Velocity 44.7 cm/s PV Mean Gradient 1.0 mmHg PV Velocity Time Integral 13.9 cm
--- NOTE | 2016-10-03 13:23 | Patient Discharge Instructions ---
Discharge Instructions General Discharge Information You were seen/treated for: Near syncope You had these procedures: You had a stress test done at [facility] Special Instructions: 1. Follow up with PCP in 1 week upon discharge 2. Follow up with cardiology Diet Recommended Diet: Heart Healthy Activity Full Activity/No Limits: Yes Acute Coronary Syndrome Inclusion Criteria At DC or during hospital stay patient has or had the following: ACS DIAGNOSIS No Discharge Core Measures Meds if any: Prescribed or Continued at Discharge Meds if any: NOT Prescribed or Continued at Discharge Congestive Heart Failure Inclusion Criteria At DC or during hospital stay patient has or had the following: CHF DIAGNOSIS No Discharge Core Measures Meds if any: Prescribed or Continued at Discharge Meds if any: NOT Prescribed or Continued at Discharge Cerebrovascular accident Inclusion Criteria At DC or during hospital stay patient has or had the following: CVA/TIA Diagnosis No Discharge Core Measures Meds if any: Prescribed or Continued at Discharge Meds if any: NOT Prescribed or Continued at Discharge Venous thromboembolism Inclusion Criteria VTE Diagnosis No VTE Type NONE VTE Confirmed by (Test) NONE Discharge Core Measures - Per Current guidelines, there needs to be overlap - treatment for the first 5 days of Warfarin therapy. - If discharged on Warfarin prior to 5 days of - overlap therapy, the patient will need to be - assessed for post discharge needs including - *Post discharge parental anticoagulation - *Warfarin and/or parental anticoagulation education - *Follow up date to check INR post discharge At least 5 days overlap therapy as Inpatient No Meds if any: Prescribed or Continued at Discharge Note: Overlap Therapy is Warfarin and Anticoagulant Meds if any: NOT Prescribed or Continued at Discharge
[2016-10-03] MEDS ORDERED: MECLIZINE HCL12.5 M1 PO (13:49)
--- NOTE | 2016-10-03 22:20 | Discharge Summary ---
Visit Information Visit Dates Admission Date: 10/01/16 Discharge Date: 10/03/16 Hospital Course Course Attending Physician: ALANA PRASAD MD Primary Care Physician: NELSON VIDAL,ROLF Camacho Consulting Request: Consulting Specialty: Cardiology Hospital Course: Ms. Mar is a 75 y/o F with PMHx of insomnia who presents with multiple episodes of near syncope associated with chest discomfort for the past month Vitals and admission: Blood pressure 140/76, respirations 16, pulse 80, temperature 97.9, oxygen saturation 97% on room air. Labs and admission 7.0, H&H stable, platelet count 226, sodium 140, potassium 4.0, BUN 17, creatinine 0.7, troponins less than 0.02, magnesium 1.6, d-dimer 756. EKG showed normal sinus rhythm next Chest x-ray no acute cardiac pulmonary process CTA chest showed no PE, no airspace consolidation, pneumothorax or pleural effusion. Hospital course 1. Near syncope/to chest discomfort: Patient was admitted to telemetry. ACS ruled out with negative troponins 3 and normal EKGs. Cardiology consult placed. Carotid ultrasound showed no evidence suggesting hemodynamically significant stenosis. Given the concern for recurrent intermittent chest discomfort and a presyncopal episodes an inpatient echocardiogram and a exercise stress test was obtained. This results are as above mentioned. Stress test: The patient completed 7 minutes of a standard Dario protocol ETT, stopping secondary to fatigue. No arrhythmias were noted during testing. No pain was noted during exercise. No ischemic EKG changes were noted during exercise. Normal stress test at high average exercise capacity. Patient remained without arrhythmias during the hospital course. Recommendation was given to follow-up with Lam Hedrick MD as outpatient for 30 day event monitoring. She was started on a trial of meclizine and given different to follow-up with Stacey Simeon MD for vertigo. Allergies: Coded Allergies: Penicillins (Intermediate, RASH, NAUSEA/VOMITING 10/01/16) amoxicillin (From Augmentin) (Intermediate, RASH, NAUSEA/VOMITING 10/01/16) clavulanic acid (From Augmentin) (Intermediate, RASH, NAUSEA/VOMITING 10/01/16) hydrocodone (Intermediate, RASH 10/01/16) Significant Procedures: Exercise stress test Disposition Summary Disposition Principal Diagnosis: 1. Atypical chest pain 2. Presyncope Additional Diagnosis: Insomnia Discharge Disposition: home or self care Discharge Instructions General Discharge Information Code Status: Full Code Patient's Diet: Heart healthy diet Patient's Activity: As tolerated Follow-Up Instructions/Appts: 1. Follow up with PCP in 1 week upon discharge 2. Follow up with cardiology 3. Follow up with ENT for vertigo Medications at Discharge Discharge Medications: Continue taking these medications: Sertraline HCl (Sertraline HCl) 100 MG TABLET 1 Tablet ORAL DAILY Qty = 30 Comments: Last Taken: 10/02/16 Time: 10PM Trazodone HCl (Trazodone HCl) 100 MG TABLET 1 Tablet ORAL Every night Qty = 30 Comments: Last Taken: 10/02/16 Time: 10PM Start taking the following new medications: Meclizine HCl (Meclizine HCl) 12.5 MG TABLET 1 Tablet ORAL THREE TIMES DAILY as needed for VERTIGO Qty = 15 No Refills Copies To: NELSON VIDAL,ROLF Camacho
== END 2016-10-03 14:30 ==
LOC: ERH 19:07 → ERHI 21:29 → ENPENDDIS 21:29 → 1NO 21:29
PROVIDERS: Emergency Medicine; Student in an Organized Health Care Education/Training Program; ADMIT Student in an Organized Health Care Education/Training Program
DX: R07.9 Chest pain, unspecified (principal); R55 Syncope and collapse; G47.00 Insomnia, unspecified; R74.0 Nonspecific elevation of levels of transaminase and lactic acid dehydrogenase [LDH]; F41.9 Anxiety disorder, unspecified
CPT/HCPCS: 2000; 36415; 93005; 93010; 93016; 93017; 93306; 96372; G0378; J1650

== ENCOUNTER 2017-02-05 18:03 | Emergency (ER) | payer OTHER, MEDICARE ==
[~2017-02-05] VITALS: Ht 157.5 cm; Wt 61.2 kg
[~2017-02-05 18:03] MED LIST: MECLIZINE HCL12.5 M1 PO; SERTRALINE HCL100 MG PO; TRAZODONE HCL100 M1 PO
[2017-02-05 18:52] LABS: ABSOLUTE BASOPHIL COUNT 0 /CUMM (0.0-0.2); ABSOLUTE EOSINOPHIL COUNT 0.2 /CUMM (0.0-0.7); ABSOLUTE GRANULOCYTE CT 3.8 /CUMM (1.4-6.5); ABSOLUTE LYMPH COUNT 1.5 /CUMM (1.2-3.4); ABSOLUTE MONOCYTE COUNT 0.5 /CUMM (0.10-0.60); BASOPHIL % 0.5 % (0.0-2.0); EOSINOPHIL % 3.2 % (0-5); GRANULOCYTE % 63.3 % (42.2-75.2); MEAN CORPUSCULAR VOLUME 87.2 FL (81.0-99.0)
[2017-02-05] MEDS ORDERED: CLONAZEPAM0.5 M2 PO (18:56)
[2017-02-05] MEDS ORDERED: AMLODIPINE BES2.5 M1 (18:59)
--- NOTE | 2017-02-05 19:02 | ED SYNCOPE COMPLAINT ---
History of Present Illness General Chief Complaint: Syncope and Near-Syncope Stated Complaint: SYNCOPE,HIGH BP Source: patient Exam Limitations: no limitations Vital Signs & Intake/Output Vital Signs & Intake/Output Vital Signs Date Time Temp Pulse Resp B/P B/P Pulse O2 O2 Flow FiO2 Mean Ox Delivery Rate 02/05 2315 98.3 84 16 134/80 98 Room Air Room Air 02/05 2015 98.2 80 16 135/74 98 Room Air Room Air 02/05 1839 98 Room Air Room Air 02/05 1807 97.7 97 20 118/76 98 Room Air Room Air ED Intake and Output 02/06 0000 02/05 1200 Intake Total 0 Output Total Balance 0 Intake, Oral 0 Patient 135 lb Weight Weight Reported by Patient Measurement Method Allergies Coded Allergies: Penicillins (Intermediate, RASH, NAUSEA/VOMITING 02/05/17) amoxicillin (From Augmentin) (Intermediate, RASH, NAUSEA/VOMITING 02/05/17) clavulanic acid (From Augmentin) (Intermediate, RASH, NAUSEA/VOMITING 02/05/17) hydrocodone (Intermediate, RASH 02/05/17) Reconcile Medications Amlodipine Besylate (Unknown Strength) TABLET (Unknown Dose) UNKNOWN ( Reported) Clonazepam 0.5 MG TABLET 1 TAB PO BID ANXIETY (Reported) Sertraline HCl 100 MG TABLET 0.5 TAB PO DAILY MENTAL HEALTH (Reported) Trazodone HCl 100 MG TABLET 1 TAB PO QPM MENTAL HEALTH (Reported) Triage Note: PT TO ED FOR C/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 PT REPORTS SHE FIRST FELT LIGHTHEADED AND THEN LAID DOWN "AND THEN MY HEART PALPITATIONS KEPT INCREASING, THEN THE CHEST PRESSURE BECAME AN 8/10" PER FAMILY, PT'S BP HIGH. NORMOTENSIVE IN TRIAGE. NORMAL COLORING. NO ACUTE DISTRESS NOTED. Triage Nurses Notes Reviewed? yes Timing: recent history Precipitating Factors: stress, climbing stairs Context: see below Episode Description: See below Loss of Consciousness: no loss of consciousness Associated Symptoms: lightheadedness HPI: 76 yo woman h/o syncope and hypertension, presents after an episode of syncope. She notes that she has had similar symptoms since October. She notes that she was admitted in October, had a negative stress test and [facility] cardiac echo. She then followed up with her lean leader in [place], had a negative cardiac cath. She notes that for the past several months, approximately every weeks or so, she has an episode where she feels lightheaded, gets chest discomfort, and feels like the will pass out. "I don't pass out... I feel it coming and lower myself to the ground." She notes the episode tonight occured after discussing politics with a friend. "My doctor things it might be due to stress." She feels occasional palpitations , shortness of breath. She notes that at present she is feeling well. Past History Travel History Traveled to [place] past 21 day No Medical History Any Pertinent Medical History? see below for history Neurological: NONE EENT: NONE Cardiovascular: NONE Respiratory: NONE Gastrointestinal: NONE Hepatic: NONE Renal: NONE Musculoskeletal: NONE Psychiatric: insomnia Endocrine: NONE Blood Disorders: NONE Cancer(s): NONE METAL BENDING MACHINE OPERATOR/Reproductive: NONE History of MRSA: No History of VRE: No History of CDIFF: No Surgical History Surgical History: hysterectomy Psychosocial History Services at Home None What is your primary language Kenyan Tobacco Use: Never used ETOH Use: denies use Illicit Drug Use: denies illicit drug use Family History Family History, If Any: FATHER, , Age 50-60; Cause: Lung cancer. FH: lung cancer MOTHER, , Age 60+; Cause: Fall. MATERNAL UNCLE FH: heart disease MATERNAL GRANDMOTHER FH: breast cancer MATERNAL GRANDFATHER FH: heart disease MATERNAL AUNT Rectal cancer PATERNAL GRANDFATHER, , Age 50-60; Cause: Walking pneumonia. PATERNAL GRANDMOTHER, , Age 50-60; Cause: Cirrhosis. FH: cirrhosis PATERNAL AUNT, , Age 50-60; Cause: Cirrhosis. FH: cirrhosis Relation not specified for: FH: colon cancer in relative <50 years old Hx Contributory? No Review of Systems Review of Systems Constitutional: Reports: no symptoms. EENTM: Reports: no symptoms. Respiratory: Reports: no symptoms. Cardiovascular: Reports: no symptoms. GI: Reports: no symptoms. Genitourinary: Reports: no symptoms. Musculoskeletal: Reports: no symptoms. Skin: Reports: no symptoms. Neurological/Psychological: Reports: no symptoms. All Other Systems: Reviewed and Negative Physical Exam Physical Exam General Appearance: well developed/nourished, mild distress Head: atraumatic, normal appearance Eyes: Bilateral: normal appearance, PERRL, EOMI. Ears, Nose, Throat: normal pharynx, normal ENT inspection Neck: normal inspection, supple, full range of motion Respiratory: normal breath sounds, chest non-tender, no respiratory distress, quiet respiration, lungs clear Cardiovascular: regular rate/rhythm Gastrointestinal: normal bowel sounds, soft, non-tender Back: normal inspection Extremities: normal inspection Psychiatric: awake, alert, oriented x 3 Cranial Nerves: normal hearing, normal speech, PERRL Coordination/Gait: normal gait Motor/Sensory: no motor/sensory deficits Reflexes: 1+: bicep (R), bicep (L). Skin: intact, normal color, warm/dry Core Measures ACS in differential dx? No CVA/TIA Diagnosis: No Severe Sepsis Present: No Septic Shock Present: No Progress Differential Diagnosis: tachy/natalia syndrome vs other dyrhythmia vs vaso-vagal vs other. Plan of Care: Orders Procedure Date/time Status TROPONIN LEVEL 02/05 2130 Complete EKG 02/05 2130 Active Add-on Test (ER Only) 02/05 1901 Active D-DIMER 02/05 183 Complete TROPONIN LEVEL 02/05 182 Complete COMPREHENSIVE METABOLIC PANEL 02/05 182 Complete CBC WITHOUT DIFFERENTIAL 02/05 1826 Complete EKG 02/05 1804 Active Laboratory Tests 02/05/178: Troponin I 0.10 02/05/17 183: Anion Gap 14, Estimated GFR > 60, BUN/Creatinine Ratio 23.3, Glucose 115 H, Calcium 9.3, Total Bilirubin 0.5, AST 65 H, ALT 86 H, Alkaline Phosphatase 96, Troponin I < 0.01, Total Protein 7.2, Albumin 4.5, Globulin 2.7, Albumin/ Globulin Ratio 1.7, D-Dimer High Sensitivty 249 H, CBC w Diff NO MAN DIFF REQ, RBC 4.69, MCV 87.2, MCH 29.6, RDW 13.1, MPV 8.6, Gran % 63.3, Lymphocytes % 24.7 , Monocytes % 8.3, Eosinophils % 3.2, Basophils % 0.5, Absolute Granulocytes 3.8 , Absolute Lymphocytes 1.5, Absolute Monocytes 0.5, Absolute Eosinophils 0.2, Absolute Basophils 0, PUBS MCHC 33.9 Diagnostic Imaging: Viewed by Me: Radiology Read. Discussed w/RAD: Radiology Read. CXR Impression: no acute abnormality, no infiltrates, normal size heart, normal mediastinum Comments: PATIENT: HAYLIE DUFF PRESENT AGE: 76 PATIENT ACCOUNT NO: [id number] : 40 LOCATION: [facility] ORDERING PHYSICIAN: BHUPINDER QUINTERO MD SERVICE DATE: 02/05/17 EXAM TYPE: RAD - XRY-PORTABLE CHEST XRAY EXAMINATION: XR PORTABLE CHEST CLINICAL INFORMATION: Syncope. COMPARISON: Portable chest x-ray 10/01/2016. TECHNIQUE: Portable frontal view of the chest was obtained. FINDINGS: The lungs are well-expanded and clear without focal airspace consolidation. No pleural effusions or pneumothoraces are identified. Cardiomediastinal contours are within normal limits. Soft tissues are unremarkable. No acute osseous abnormality is identified. IMPRESSION: No acute pulmonary process. DICTATED BY: EDENILSON ARRIAGA MD DATE/TIME DICTATED:02/05/171940 PROFESSOR OF FORESTRY:MERVAT DATE/TIME TRANSCRIBED:02/05/171940 CONFIDENTIAL, DO NOT COPY WITHOUT APPROPRIATE AUTHORIZATION. <Electronically signed in Other Vendor System> SIGNED BY: EDENILSON ARRIAGA MD 02/05/171944 Departure Departure Disposition: HOME OR SELF CARE Condition: Stable Clinical Impression Primary Impression: Syncope Referrals: NELSON VIDAL,ROLF Camacho (PCP/Family) Departure Forms: Customer Survey General Discharge Information Comments 02/05/17, 22:30 Discussed at length with the patient. She has a benign EKG 2 and troponin negative 2. I suggested to her that she be admitted to stay overnight to be evaluated by cardiology to further clarify her symptoms. I suggested this several times and raised the issue of and morbidity. She is insistent, and adamant, about not staying. She wishes to follow up with her lean leader tomorrow who are at [place]. Given that she has had these symptoms for many months and has had a benign extensive workup thus far, I believe that she is safe for discharge
[2017-02-05 19:13] LABS: RED BLOOD CELL CT 4.69 /CUMM (4.20-5.40); WHITE BLOOD CELL COUNT 6.6 /CUMM (4.8-10.8)
[2017-02-05 19:14] LABS: MEAN CORPUSCULAR HGB 29.6 PG (27.0-31.0); MEAN CORPUSCULAR HGB CONC 33.9 G/DL (33.0-37.0); MEAN PLATELET VOLUME 8.6 FL (7.4-10.4); PLATELET COUNT 249 /CUMM (130-400); RBC DISTRIBUTION WIDTH 13.1 % (11.5-14.5)
--- NOTE | 2017-02-05 19:45 | RADIOLOGY REPORT ---
EXAMINATION: XR PORTABLE CHEST CLINICAL INFORMATION: Syncope. COMPARISON: Portable chest x-ray 10/01/2016. TECHNIQUE: Portable frontal view of the chest was obtained. FINDINGS: The lungs are well-expanded and clear without focal airspace consolidation. No pleural effusions or pneumothoraces are identified. Cardiomediastinal contours are within normal limits. Soft tissues are unremarkable. No acute osseous abnormality is identified. IMPRESSION: No acute pulmonary process.
[2017-02-05 23:15] VITALS: BP 134/80
== END 2017-02-05 23:18 ==
LOC: ERH 18:03
PROVIDERS: Emergency Medicine
DX: R55 Syncope and collapse (principal); R42 Dizziness and giddiness; R07.89 Other chest pain
CPT/HCPCS: 93005; 93010